=== PATIENT | female | born 2000 | race Caucasian/White ===

== ENCOUNTER 2024-05-11 20:36 | Emergency (ER) | payer BC ==
[2024-05-11] MEDS: Acetaminophen 325 MG Tab PO ONE (22:38)
== END 2024-05-11 23:35 | disposition home or self-care (01) ==
LOC: MW.ED 20:36
DX: N93.9 Abnormal uterine and vaginal bleeding, unspecified (principal); F17.210 Nicotine dependence, cigarettes, uncomplicated; Z75.8 Other problems related to medical facilities and other health care
CPT/HCPCS: 36415; 84702; 85018; 86900; 86901; 99284; A9270

== ENCOUNTER 2024-08-30 14:44 | Emergency (ER) | payer SELFPAY | END 2024-08-30 16:43 | disposition home or self-care (01) | LOC: MW.ED 14:44 | DX: S06.0X0A Concussion without loss of consciousness, initial encounter (principal); S00.93XA Contusion of unspecified part of head, initial encounter; Z79.899 Other long term (current) drug therapy; W22.8XXA Striking against or struck by other objects, initial encounter; Y99.0 Civilian activity done for income or pay | CPT/HCPCS: 70450; 70450-26; 72125; 72125-26; 99282; 99285 ==